=== PATIENT | male | born 1935 | race Caucasian/White ===

== ENCOUNTER 2016-10-01 22:00 | Emergency (ER) | payer MEDICARE ==
[~2016-10-01] VITALS: Ht 175.3 cm; Wt 110.0 kg
[~2016-10-01 22:00] MED LIST: ACETCAP PO; APIX5TAB PO; ASHW1CAP PO; CHEL50TA PO; COQ1100C PO; FISH1000 PO; FURO10S PO; HYDR-3580 PO; METO50TA PO; MULT1TAB46; TAUR500C2 PO; VITA-13 PO; [UNRECOGNIZED DRUG - OTHER] PO
[2016-10-01 22:06] VITALS: BP 162/102; PULSE 99; RESP 14; TEMP 98.4; O2SAT 100
[2016-10-01 22:25] VITALS: BP 155/81; PULSE 89; RESP 18; TEMP 98.7; O2SAT 97
--- NOTE | 2016-10-01 22:53 | RADRPT ---
EXAM DATE/TIME: 10/01/2016 22:33 [facility] COMPARISON: CHEST SINGLE AP, August 07, 2015, 20:40. INDICATIONS : Confusion and nausea after inhaling paint remover fumes. MEDICAL HISTORY : None. SURGICAL HISTORY : None. ENCOUNTER: Initial ACUITY: 1 day PAIN SCORE: 0/10 LOCATION: Bilateral chest FINDINGS: No infiltrate, effusion or pneumothorax. Mild cardiomegaly is stable. Thoracic aorta is tortuous. CONCLUSION: No acute abnormality demonstrated. Agustín Chavez MD on October 01, 2016 at 22:51 Board Certified Radiologist. This report was verified electronically.
--- NOTE | 2016-10-01 22:55 | PD ---
HPI Chief Complaint: Altered Mental Status Time Seen by Provider: 22:50 Travel History International Travel<30 days: No Contact w/Intl Traveler<30days: No Traveled to known affect area: No History of Present Illness HPI 81-year-old male that presents to the ED for evaluation of confusion. Per patient and family patient has been confused for at least the past hour or 2. Patient has trouble remembering things. This is unusual for him. Patient has a history of A. fib and takes a liquids for it. He denies any trauma. He does tell me that he was working trying to remove some old paint and after it he developed a headache on his left side that wasn't severe but during that time he also is having the confusion. Per patient he still has a headache and the pain is 2 out of 10. Patient and appear to minimal ice symptoms but grandson who is present states that the symptoms have been more severe tender letting on. Patient denies any chest pain or shortness of breath. He denies any abdominal pain. Nausea vomiting. No fevers chills or sweats. No injuries or neck pain. Pain does not radiate. He has no allergies to medication. He follows with a hand buffer and a primary care doctor. He has no history of CVA or ACS. Most of the symptoms are with remembering things and not really having any slurred speech or any numbness, weakness, tingling or any other symptom. PFSH Past Medical History Hx Anticoagulant Therapy: Yes Asthma: No Atrial Fibrillation: Yes Autoimmune Disease: No Blood Disorders: No Anxiety: No Depression: No Heart Rhythm Problems: Yes (AFIB) Cancer: Yes (PROSTATE) Cardiovascular Problems: Yes (A-FIB) Cerebral Palsy: Yes High Cholesterol: No Chest Pain: No Congestive Heart Failure: No COPD: No Diabetes: No Diminished Hearing: Yes ([place] BILATERAL) Endocrine: No Gastrointestinal Disorders: No Genitourinary: Yes (prostate cancer with radiation given ) Hypertension: Yes Immune Disorder: No Musculoskeletal: No Neurologic: No Psychiatric: No Reproductive: No Respiratory: Yes Immunizations Current: No Myocardial Infarction: No Radiation Therapy: Yes Sleep Apnea: Yes Influenza Vaccination: No Past Surgical History AICD: No Body Medical Devices: gold seeds in prostate as target for radiation ... Pacemaker: No Tonsillectomy: Yes (TONS/AD) Other Surgery: Yes (left little finger reattached ) Social History Alcohol Use: Yes (RARELY) Tobacco Use: No Substance Use: No Allergies-Medications (Allergen,Severity, Reaction): Coded Allergies: No Known Allergies (Unverified , 10/01/16) Reported Meds & Prescriptions Reported Meds & Active Scripts Active Hydrocodone/Acetaminophen 7.5 mg/325 mg 1 Tab 1 Tab PO Q4H PRN Metoprolol Tartrate 50 Mg Tab 100 Mg PO BID 30 Days Reported Taurine 500 Mg Cap 1,000 Mg PO BID Ashwagandha (Ashwagandha (Withana Somnfera)) 500 Mg Cap 125 Mg PO BID Zinc (Zinc Gluconate) 50 Mg Tab 50 Mg PO DAILY P-Apmjba-I-Cysteine (Acetylcysteine (Nutrient)) Cysteine Cap 600 Mg PO BID Silymarin (Milk Thistle-Turmeric) Cap 100 Mg PO TID Vitamin D3 1000 Unit Tab (Cholecalciferol) 1,000 Unit Tab 5,000 Unit PO DAILY Coq10 (Coenzyme Q10 (Ubidecarenone)) 100 Mg Cap 100 Mg PO BID Furosemide 10 Mg/Ml Angelica 20 Mg PO DAILY Multi Vitamin Daily (Multiple Vitamin) 1 Tab Tab 3 Tab TID Eliquis (Apixaban) 5 Mg Tab 5 Mg PO BID Fish Oil 1,000 Mg Cap 4,700 Mg PO BID Review of Systems General / Constitutional: No: Fever, Chills, Weight Gain, Weight Loss, Other Eyes: No: Diploplia, Blurred Vision, Photophobia, Drainage, Redness, Foreign Body Sensation, Pain, Tearing, Blind Spots, Visual changes, Blindness, Other HENT: Positive: Headaches, No: Vertigo, Lightheadedness, Sore Throat, Rhinitis , Rhinorrhea, Congestion, Nosebleed, Neck Stiffness, Neck Pain, Masses, Gingival Bleeding, Dental Difficulties, Ear Discharge, Earache, Other Cardiovascular: No: Chest Pain or Discomfort, Palpitations, Irregular Rhythm, Tachycardia, Diaphoresis, Syncope, Dyspnea on exertion, Varicosities, Edema, Cyanosis, Varicosities, Phlebitis, Claudication, Other Respiratory: No: Cough, Shortness of Breath, Wheezing, Sneezing, Orthopnea, Hemoptysis, Stridor, Night Sweats, Pleuritic Pain, Other Gastrointestinal: No: Nausea, Vomiting, Diarrhea, Abdominal Pain, Hematemesis, Hematochezia, Constipation, Changes in Bowel Habits, Indigestion, Dysphagia, Loss of Appetite, Other Genitourinary: No: Urgency, Frequency, Dysuria, Nocturia, Hematuria, Decreased Urinary Output, Oliguria, Hesitancy, Dribbling, Incontinence, Pelvic Pain, Flank Pain, Dyspareunia, Discharge, Dysmenorrhea, Menorrhagia, Metorrhagia, Vaginal Bleeding, Other Musculoskeletal: No: Myalgias, Arthralgias, Limited ROM, Weakness, Cramping, Edema, Pain, Atrophy, Other Neurologic: Positive: Headache, Change in Mentation, No: Weakness, Dizziness, Syncope, Focal Abnormalities, Coordination Problem, Tremor, Ataxia, Slurred Speech, Paresthesia, Incontinence, Seizures, Sensory Disturbance, Other Psychiatric: No: Anxiety, Depression, Suicidal Ideations, Disorder of Thought, Mood Disorder, Substance Abuse, Homicidal Ideation, Other Endocrine: No: Heat Intolerance, Cold Intolerance, Polyuria, Polydipsia, Other Hematologic/Lymphatic: No: Easy Bruising, Lymph Node Enlargement, Other Physical Exam Narrative GENERAL: SKIN: Warm and dry. HEAD: Atraumatic. Normocephalic. EYES: Pupils equal and round. No scleral icterus. No injection or drainage. ENT: No nasal bleeding or discharge. Mucous membranes pink and moist. Tongue is midline. No uvula deviation. NECK: Trachea midline. No JVD. CARDIOVASCULAR: Regular rate and rhythm. No murmurs, S3, S4. RESPIRATORY: No accessory muscle use. Clear to auscultation. Breath sounds equal bilaterally. GASTROINTESTINAL: Abdomen soft, non-tender, nondistended. Hepatic and splenic margins not palpable. MUSCULOSKELETAL: Extremities without clubbing, cyanosis, or edema. No obvious deformities. Full range of motion of the upper and lower extremities bilaterally with no pain. 2+ pulses bilaterally. 5 out of 5 strength bilaterally. No lumbar, thoracic, cervical spine tenderness to palpation. NEUROLOGICAL: Awake and alert and oriented 4. No obvious cranial nerve deficits. Motor grossly within normal limits. Five out of 5 muscle strength in the arms and legs. Normal speech. Romberg test negative. Pronator test negative. Gait normal. PSYCHIATRIC: Appropriate mood and affect; insight and judgment normal. Data Data Last Documented VS Vital Signs Date Time Temp Pulse Resp B/P Pulse Ox O2 Delivery O2 Flow Rate FiO2 10/01/16 22:25 98.7 89 18 155/81 97 10/01/16 22:06 Room Air Orders Electrocardiogram (10/01/16 22:30) Complete Blood Count With Diff (10/01/16:30) Comprehensive Metabolic Panel (10/01/16:30) Ckmb (Isoenzyme) Profile (10/01/16:30) Troponin I (10/01/16:30) Prothrombin Time / Inr (Pt) (10/01/16:30) Act Partial Throm Time (Ptt) (10/01/16:30) Urinalysis - C+S If Indicated (10/01/16:30) Magnesium (Mg) (10/01/16 22:30) Thyroid Stimulating Hormone (10/01/16:30) Chest, Single Ap (10/01/16:30) Ct Brain W/O Iv Contrast(Rout) (10/01/16:30) Iv Access Insert/Monitor (10/01/16:30) Ecg Monitoring (10/01/16:30) Oximetry (10/01/16:30) MDM Medical Decision Making Medical Screen Exam Complete: Yes Emergency Medical Condition: Yes Medical Record Reviewed: Yes Differential Diagnosis Altered mental status versus contusion versus TIA versus CVA versus electrolyte abnormality versus ACS less likely Narrative Course 81-year-old male that presents to the ED for evaluation of confusion. Patient was properly examined and was found to have signs and symptoms consistent with appears to be possible confusion. Possible altered mental status. On my examination patient has no obvious deficits. Patient is able to answer questions appropriately and he seems to even remember the names of the doctors that he sees as well as the medications that he takes. Symptoms started about possibly one hour to 2 hours ago. At this time I recommend imaging and labs to rule out acute CVA. Case will be sent out to my attending pending labs and imaging. Al Antonio Oct 01, 2016 22:55
--- NOTE | 2016-10-01 22:59 | RADRPT ---
EXAM DATE/TIME: 10/01/2016 22:47 [facility] COMPARISON: No previous studies available for comparison. INDICATIONS : Altered mental status and headache. RADIATION DOSE: 48.51 CTDIvol (mGy) MEDICAL HISTORY : Carcinoma, prostate. Cardiovascular disease Hypertension. SURGICAL HISTORY : None. ENCOUNTER: Initial ACUITY: 1 day PAIN SCALE: 5/10 LOCATION: cranial TECHNIQUE: Multiple contiguous axial images were obtained of the head. Using automated exposure control and adj ustment of the mA and/or kV according to patient size, radiation dose was kept as low as reasonably a chievable to obtain optimal diagnostic quality images. FINDINGS: CEREBRUM: Mild generalized ventriculomegaly, age and etiology uncertain.. No evidence of midline shift, mass l esion, hemorrhage or acute infarction. No extra-axial fluid collections are seen. POSTERIOR FOSSA: The cerebellum and brainstem are intact. The 4th ventricle is midline. The cerebellopontine angle i s unremarkable. EXTRACRANIAL: The visualized portion of the orbits is intact. SKULL: The calvaria is intact. No evidence of skull fracture. CONCLUSION: Ventricles are mildly enlarged, nonspecific. Normal pressure hydrocephalus would be in the differenti al. Nothing to suggest acute obstruction. Otherwise negative noncontrast head CT. Agustín Chavez MD on October 01, 2016 at 22:56 Board Certified Radiologist. This report was verified electronically.
[2016-10-01 23:05] VITALS: O2SAT 98
[2016-10-01 23:22] LABS: AUTOMATED NEUTROPHIL # 4.3 TH/MM3 (1.8-7.7); BASOPHIL # 0.1 TH/MM3 (0-0.2); BASOPHIL % 0.9 % (0.0-2.0); EOSINOPHIL # 0.2 TH/MM3 (0-0.4); EOSINOPHIL % 2.9 % (0.0-4.0); HEMATOCRIT 40.5 % (39.0-51.0); LYMPH % 25.4 % (9.0-44.0); LYMPHOCYTE # 1.8 TH/MM3 (1.0-4.8); MEAN CELL VOLUME 88.2 FL (80.0-100.0); MEAN CORPUSCULAR HEMOGLOBIN 29.6 PG (27.0-34.0); MEAN CORPUSCULAR HGB CONC 33.6 % (32.0-36.0); MONO % 10.8 % (0.0-8.0); PLATELET COUNT 213 TH/MM3 (150-450); RED BLOOD COUNT 4.59 MIL/MM3 (4.50-5.90); RED CELL DISTRIBUTION WIDTH 14.3 % (11.6-17.2); WHITE BLOOD COUNT 7.2 TH/MM3 (4.0-11.0)
[2016-10-01 23:28] LABS: HEMO FLAGS AUTO DIFF
[2016-10-01 23:58] LABS: APTT (PATIENT) 27.9 SEC (24.3-30.1)
[2016-10-02 00:02] LABS: PLATELET ESTIMATE SMEAR NORMAL (NORMAL); PLATELET MORPHOLOGY NORMAL (NORMAL); SCAN/DIFF AUTO DIFF CONFIRMED
[2016-10-02 00:11] LABS: ALT (GPT) 29 U/L (12-78); ANION GAP 7 MEQ/L (5-15); AST (GOT) 19 U/L (15-37); BICARBONATE 29.1 MEQ/L (21.0-32.0); BLOOD UREA NITROGEN 15 MG/DL (7-18); CHLORIDE 105 MEQ/L (98-107); GLOMERULAR FILTRATION RATE 75 ML/MIN (>89); MAGNESIUM 2.2 MG/DL (1.5-2.5); POTASSIUM 3.5 MEQ/L (3.5-5.1); SODIUM (NA) 141 MEQ/L (136-145)
[2016-10-02 00:15] LABS: BLOOD, URINE NEG (NEG); COMMENT (UR) CULT NOT INDICATED; CULTURE IF INDICATED CULT NOT INDICATED; GLUCOSE,URINE NEG (NEG); KETONE, URINE NEG (NEG); MUCUS URINE FEW /lpf (OCC); NITRITE,URINE NEG (NEG); PH, URINE 5.5 (5.0-8.5); SQUAMOUS EPITHELIAL CELL URINE <1 /hpf (0-5); URINE COLOR DARK-YELLOW (YELLW/STRAW)
[2016-10-02 00:21] LABS: ALKALINE PHOSPHATASE 85 U/L (45-117); TOTAL BILIRUBIN ADULT 0.3 MG/DL (0.2-1.0)
[2016-10-02 00:22] LABS: CREATINE KINASE 65 U/L (39-308)
--- NOTE | 2016-10-02 00:41 | PD ---
Data Data Last Documented VS Vital Signs Date Time Temp Pulse Resp B/P Pulse Ox O2 Delivery O2 Flow Rate FiO2 10/01/16 23:05 98 Room Air 10/01/16 22:25 98.7 89 18 155/81 Orders Electrocardiogram (10/01/16 22:30) Complete Blood Count With Diff (10/01/16 22:30) Comprehensive Metabolic Panel (10/01/16 22:30) Ckmb (Isoenzyme) Profile (10/01/16 22:30) Troponin I (10/01/16 22:30) Prothrombin Time / Inr (Pt) (10/01/16 22:30) Act Partial Throm Time (Ptt) (10/01/16 22:30) Urinalysis - C+S If Indicated (10/01/16 22:30) Magnesium (Mg) (10/01/16 22:30) Thyroid Stimulating Hormone (10/01/16 22:30) Chest, Single Ap (10/01/16 22:30) Ct Brain W/O Iv Contrast(Rout) (10/01/16 22:30) Iv Access Insert/Monitor (10/01/16 22:30) Ecg Monitoring (10/01/16 22:30) Oximetry (10/01/16 22:30) Labs Laboratory Tests Test 10/01/16 10/01/16 10/01/16 23:00 23:30 23:40 White Blood Count 7.2 TH/MM3 Red Blood Count 4.59 MIL/MM3 Hemoglobin 13.6 GM/DL Hematocrit 40.5 % Mean Corpuscular Volume 88.2 FL Mean Corpuscular Hemoglobin 29.6 PG Mean Corpuscular Hemoglobin 33.6 % Concent Red Cell Distribution Width 14.3 % Platelet Count 213 TH/MM3 Mean Platelet Volume 9.2 FL Neutrophils (%) (Auto) 60.0 % Lymphocytes (%) (Auto) 25.4 % Monocytes (%) (Auto) 10.8 % Eosinophils (%) (Auto) 2.9 % Basophils (%) (Auto) 0.9 % Neutrophils # (Auto) 4.3 TH/MM3 Lymphocytes # (Auto) 1.8 TH/MM3 Monocytes # (Auto) 0.8 TH/MM3 Eosinophils # (Auto) 0.2 TH/MM3 Basophils # (Auto) 0.1 TH/MM3 CBC Comment AUTO DIFF Differential Comment AUTO DIFF CONFIRMED Platelet Estimate NORMAL Platelet Morphology Comment NORMAL Prothrombin Time 11.0 SEC Prothromb Time International 1.0 RATIO Ratio Activated Partial 27.9 SEC Thromboplast Time Sodium Level 141 MEQ/L Potassium Level 3.5 MEQ/L Chloride Level 105 MEQ/L Carbon Dioxide Level 29.1 MEQ/L Anion Gap 7 MEQ/L Blood Urea Nitrogen 15 MG/DL Creatinine 0.96 MG/DL Estimat Glomerular Filtration 75 ML/MIN Rate Random Glucose 102 MG/DL Calcium Level 8.8 MG/DL Magnesium Level 2.2 MG/DL Total Bilirubin 0.3 MG/DL Aspartate Amino Transf 19 U/L (AST/SGOT) Alanine Aminotransferase 29 U/L (ALT/SGPT) Alkaline Phosphatase 85 U/L Total Creatine Kinase 65 U/L Troponin I LESS THAN 0.02 NG/ML Total Protein 6.9 GM/DL Albumin 3.5 GM/DL Thyroid Stimulating Hormone 1.410 uIU/ML 3rd Gen Urine Color DARK-YELLOW Urine Turbidity CLEAR Urine pH 5.5 Urine Specific [place] 1.021 Urine Protein NEG mg/dL Urine Glucose (UA) NEG mg/dL Urine Ketones NEG mg/dL Urine Occult Blood NEG Urine Nitrite NEG Urine Bilirubin NEG Urine Urobilinogen LESS THAN 2.0 MG/DL Urine Leukocyte Esterase NEG Urine RBC 4 /hpf Urine WBC LESS THAN 1 /hpf Urine Squamous Epithelial <1 /hpf Cells Urine Mucus FEW /lpf Microscopic Urinalysis Comment CULT NOT INDICATED MDM Supervised Visit with ELISE: Yes Narrative Course I, Dr. Arreola, have reviewed the advance practice practitioner's documentation and am in agreement, met with the patient face to face, made the diagnosis, and the medical decision making was done by me. See his note for further details. Briefly this is an 81-year-old male who has history of A. fib on eliquis, here with family for evaluation of confusion 1 hour. 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 The patient reports having memory loss. He states he made a phone call on his cell phone, but cannot remember who he called. By the time he arrived to the emergency department he was back to his baseline. On physical exam he is awake and alert, GCS 15, no focal neurologic deficits. He is oriented to person place and time. Vital signs reviewed and shows slight elevated blood pressure, otherwise within normal limits. CBC is unremarkable. CMP is unremarkable. Cardiac enzymes are negative. UA is not suggestive of UTI. Chest x-ray shows no acute disease. CT head: CONCLUSION: Ventricles are mildly enlarged, nonspecific. Normal pressure hydrocephalus would be in the differential. Nothing to suggest acute obstruction. Otherwise negative noncontrast head CT. The patient and the patient's family were made aware of all findings. He is awake and alert and is resting comfortably. They report he is back to his [place]. They believe that his symptoms were most likely secondary to the paint fumes that were inhaled while painting earlier today. Patient has no focal neurologic findings on exam. He is walking with a steady gait and is able to ambulate without assistance and without difficulty. He denies urinary incontinence. He will be provided a copy of his CT brain report, and will follow-up with his primary care physician this week who can refer him to a neurologist for further workup as an outpatient if he deems necessary. Patient reports he would like to be discharged home. He is stable for discharge home with outpatient follow-up. He was informed on when to return to the emergency department. He verbalizes understanding and agreement with plan. Diagnosis Primary Impression: Transient amnesia Referrals: Primary Care Physician 3 days Additional Instruction: Follow-up with your primary care physician this week. Return to the emergency department for worsening symptoms or any other concerns as discussed. Disposition: 01 DISCHARGE HOME Condition: Stable Miller Arreola MD Oct 02, 2016 00:41
--- NOTE | 2016-10-02 14:14 | EKG ---
Date Performed: 10/01/2016 Time Performed: 22:59:21 PTAGE: 81 years EKG: ATRIAL FIBRILLATION LOW QRS VOLTAGE IN PRECORDIAL LEADS POSSIBLE RIGHT VENTRICULAR CONDUCTI ON DELAY INFERIOR MYOCARDIAL INFARCTION Compared to prior tracing no significant change ABNORMAL ECG PREVIOUS TRACING : 04/15/2016 22.00 DOCTOR: Ramón Patel Interpretating Date/Time 10/02/2016 14:13:20
== END 2016-10-02 00:52 | disposition home or self-care (01) ==
LOC: NEPE 22:00
DX: R41.3 Other amnesia (principal); T59.891A Toxic effect of other specified gases, fumes and vapors, accidental (unintentional), initial encounter; R41.0 Disorientation, unspecified; R11.0 Nausea; I48.91 Unspecified atrial fibrillation; G80.9 Cerebral palsy, unspecified; I10 Essential (primary) hypertension; R94.31 Abnormal electrocardiogram [ECG] [EKG]; Y92.9 Unspecified place or not applicable
CPT/HCPCS: 70450; 71010; 80053; 81001; 82550; 83735; 84443; 84484; 85025; 85610; 85730; 93005

== ENCOUNTER → 2017-03-24 | Outpatient (CLI) | payer MEDICARE ==
[2017-03-24 07:36] LABS: ANION GAP 6 MEQ/L (5-15); AST (GOT) 18 U/L (15-37); BICARBONATE 29.9 MEQ/L (21.0-32.0); BLOOD UREA NITROGEN 19 MG/DL (7-18); CHLORIDE 103 MEQ/L (98-107); GLOMERULAR FILTRATION RATE 68 ML/MIN (>89); GLUCOSE,FASTING 96 MG/DL (74-99); POTASSIUM 3.8 MEQ/L (3.5-5.1); SODIUM (NA) 139 MEQ/L (136-145)
[2017-03-24 07:37] LABS: ALT (GPT) 26 U/L (12-78)
[2017-03-24 07:46] LABS: ALKALINE PHOSPHATASE 65 U/L (45-117); HDL CHOLESTEROL 29.6 MG/DL (40.0-60.0); LDL CHOLESTEROL 100 MG/DL (0-99); TOTAL BILIRUBIN ADULT 0.7 MG/DL (0.2-1.0)
[2017-03-24 09:11] LABS: HEMATOCRIT 44.3 % (39.0-51.0); MEAN CELL VOLUME 90.5 FL (80.0-100.0); MEAN CORPUSCULAR HEMOGLOBIN 29.8 PG (27.0-34.0); PLATELET COUNT 221 TH/MM3 (150-450); REVIEW FLAG FINAL; WHITE BLOOD COUNT 7.2 TH/MM3 (4.0-11.0)
== END ==
LOC: CLAB 06:49
PROVIDERS: ATTEND Family Medicine
DX: R41.0 Disorientation, unspecified (principal); I10 Essential (primary) hypertension; G91.2 (Idiopathic) normal pressure hydrocephalus; E78.5 Hyperlipidemia, unspecified; K52.9 Noninfective gastroenteritis and colitis, unspecified; G60.9 Hereditary and idiopathic neuropathy, unspecified; J44.9 Chronic obstructive pulmonary disease, unspecified; I48.91 Unspecified atrial fibrillation; Z68.34 Body mass index [BMI] 34.0-34.9, adult
CPT/HCPCS: 36415; 80053; 80061; 84443; 85027

== ENCOUNTER → 2017-08-03 | Outpatient (CLI) | payer MEDICARE ==
[2017-08-03 07:20] LABS: HEMATOCRIT 43.1 % (39.0-51.0); HEMOGLOBIN 14.5 GM/DL (13.0-17.0); MEAN CORPUSCULAR HEMOGLOBIN 29.9 PG (27.0-34.0); MEAN CORPUSCULAR HGB CONC 33.6 % (32.0-36.0); MEAN PLATELET VOLUME 7.7 FL (7.0-11.0); PLATELET COUNT 188 TH/MM3 (150-450); RED BLOOD COUNT 4.84 MIL/MM3 (4.50-5.90); RED CELL DISTRIBUTION WIDTH 13.9 % (11.6-17.2); WHITE BLOOD COUNT 7.2 TH/MM3 (4.0-11.0)
[2017-08-03 07:41] LABS: ALBUMIN 3.9 GM/DL (3.4-5.0); ALT (GPT) 23 U/L (12-78); AST (GOT) 21 U/L (15-37); BLOOD UREA NITROGEN 15 MG/DL (7-18); CALCIUM 8.7 MG/DL (8.5-10.1); CHLORIDE 103 MEQ/L (98-107); CHOLESTEROL 152 MG/DL (120-200); CREATININE 1.11 MG/DL (0.60-1.30); GLOMERULAR FILTRATION RATE 64 ML/MIN (>89); GLUCOSE,FASTING 102 MG/DL (74-99); SODIUM (NA) 140 MEQ/L (136-145); TRIGLYCERIDES 119 MG/DL (42-150)
[2017-08-03 07:50] LABS: ALKALINE PHOSPHATASE 75 U/L (45-117); CHOLESTEROL/ HDL RATIO 4.75 RATIO; FREE T4 1.19 NG/DL (0.76-1.46); LDL CHOLESTEROL 96 MG/DL (0-99); TOTAL BILIRUBIN ADULT 0.5 MG/DL (0.2-1.0); TOTAL PROTEIN 7.4 GM/DL (6.4-8.2)
== END ==
LOC: CLAB 06:56
PROVIDERS: ATTEND Family Medicine
DX: R41.0 Disorientation, unspecified (principal); I10 Essential (primary) hypertension; G91.2 (Idiopathic) normal pressure hydrocephalus; E78.5 Hyperlipidemia, unspecified; K52.9 Noninfective gastroenteritis and colitis, unspecified; G60.9 Hereditary and idiopathic neuropathy, unspecified; J44.9 Chronic obstructive pulmonary disease, unspecified; I48.91 Unspecified atrial fibrillation; Z68.34 Body mass index [BMI] 34.0-34.9, adult
CPT/HCPCS: 36415; 80053; 80061; 84439; 84443; 85027

== ENCOUNTER → 2017-12-13 | Outpatient (CLI) | payer MEDICARE ==
[2017-12-13 09:22] LABS: HEMATOCRIT 41.8 % (39.0-51.0); HEMOGLOBIN 14.1 GM/DL (13.0-17.0); MEAN CELL VOLUME 89.5 FL (80.0-100.0); MEAN CORPUSCULAR HEMOGLOBIN 30.2 PG (27.0-34.0); MEAN CORPUSCULAR HGB CONC 33.7 % (32.0-36.0); MEAN PLATELET VOLUME 7.9 FL (7.0-11.0); PLATELET COUNT 191 TH/MM3 (150-450); RED BLOOD COUNT 4.67 MIL/MM3 (4.50-5.90); RED CELL DISTRIBUTION WIDTH 14.1 % (11.6-17.2); WHITE BLOOD COUNT 6.5 TH/MM3 (4.0-11.0)
[2017-12-13 10:41] LABS: ALBUMIN 3.7 GM/DL (3.4-5.0); AST (GOT) 16 U/L (15-37); BICARBONATE 29.2 MEQ/L (21.0-32.0); BLOOD UREA NITROGEN 16 MG/DL (7-18); CALCIUM 8.8 MG/DL (8.5-10.1); CHLORIDE 102 MEQ/L (98-107); GLOMERULAR FILTRATION RATE 58 ML/MIN (>89); GLUCOSE,FASTING 96 MG/DL (74-99); SODIUM (NA) 140 MEQ/L (136-145)
[2017-12-13 10:43] LABS: CHOLESTEROL 138 MG/DL (120-200)
[2017-12-13 10:54] LABS: ALKALINE PHOSPHATASE 64 U/L (45-117); ALT (GPT) 27 U/L (12-78); CHOLESTEROL/ HDL RATIO 4.63 RATIO; HDL CHOLESTEROL 29.8 MG/DL (40.0-60.0); LDL CHOLESTEROL 83 MG/DL (0-99); TOTAL BILIRUBIN ADULT 0.6 MG/DL (0.2-1.0); TOTAL PROTEIN 7.1 GM/DL (6.4-8.2); TRIGLYCERIDES 124 MG/DL (42-150)
== END ==
LOC: CLAB 08:41
PROVIDERS: ATTEND Family Medicine
DX: I10 Essential (primary) hypertension (principal); Z68.35 Body mass index [BMI] 35.0-35.9, adult; G91.2 (Idiopathic) normal pressure hydrocephalus; E78.5 Hyperlipidemia, unspecified; K52.9 Noninfective gastroenteritis and colitis, unspecified; G60.9 Hereditary and idiopathic neuropathy, unspecified; J44.9 Chronic obstructive pulmonary disease, unspecified; I48.91 Unspecified atrial fibrillation
CPT/HCPCS: 36415; 80053; 80061; 84443; 85027